=== PATIENT | male | born 1940 | race Caucasian/White ===

== ENCOUNTER 2024-12-02 06:16 | Inpatient (IN) | payer OTHER, SELFPAY ==
--- NOTE | 2024-11-26 11:07 | PTCARENOTE ---
Pt had a recent left neck skin cancer excision. he stated it is healing, but still has a scab. Sandra in Dr. Medina's office made aware.
[2024-11-27 10:03] VITALS: BMI 32.4
[2024-11-27 10:09] LABS: Hematocrit 39.3 % (39.0-52.0); Hemoglobin 13.5 g/dL (13.0-18.0); Mean Corp Hgb Conc. 34.4 g/dL (33.0-37.0); Mean Corpuscular Volume 98.7 fL (80.0-94.0); Nucleated Red Blood Cells % 0 % (-); Platelet Count 140 10^3/uL (130-400); Red Cell Dist. Width 12.2 % (11.5-14.5)
[2024-11-27 10:13] LABS: INR 0.95; PT 13.0 Sec (11.4-14.6)
[2024-11-27 10:14] LABS: APTT 32.8 Sec (23.4-35.0)
[2024-11-27 10:33] LABS: Blood Urea Nitrogen 27 mg/dl (9-20); Calcium 9.3 mg/dl (8.4-10.2); Carbon Dioxide 24 mmol/L (22-30); Chloride 106 mmol/L (98-107); Estimated Creatinine Clearance 62 ml/min; Glucose 151 mg/dl (70-99); Potassium 4.7 mmol/L (3.5-5.1); Sodium 138 mmol/L (135-145); eGFR > 60.00
[2024-12-02] VITALS (11 sets, daily range): BP systolic 122–181; BP diastolic 48–69; BMI 32.4; BMI 32.3
--- NOTE | 2024-12-02 06:57 | W.SUR.PREOP ---
Pre-Operative Surgical Note
-
I have examined this patient prior to the performance of the scheduled procedure.
The patient's condition is unchanged from the time of the current History and
Physical and the patient is able to undergo the scheduled procedure.
[2024-12-02 07:05] LABS: Glucose - Point of Care 144 mg/dl (70-99)
[2024-12-02] MEDS: PERIDEX 0.12% ORAL RINSE 15 ML PO (07:09)
[2024-12-02] MEDS: BACTROBAN NASAL 1 GRAM NASAL (07:09)
[2024-12-02] MEDS: NSS 500 IV (07:10)
--- NOTE | 2024-12-02 09:31 | W.SUR.POST ---
Surgical Immediate Post Op
Note
Pre Op Diagnosis: Carotid stenosis
Post Op Diagnosis: same
Procedure Performed: Left carotid endarterectomy with bovine pericardial patch angioplasty and EEG monitoring
Primary Surgeon: Adam
Secondary Surgeons: Evan STONE
Anesthesia: general
Estimated Blood Loss: 10cc
Fluids: see anesthesia flow sheet
Drains/Shunts: none
Specimens/Cultures: carotid plaque
Doppler/Duplex/Angio (Y/N): Y
Complications: none
Operative Findings: Woke from anesthesia moving all extremities
--- NOTE | 2024-12-02 09:36 | OR.RPT ---
Operative Report
Operative Report
PROCEDURE DATE: 12/02/2024
Preoperative diagnosis: Critical left carotid artery stenosis, asymptomatic.
Postoperative diagnosis: Same
Procedure: Left carotid endarterectomy with bovine pericardial patch angioplasty and intraoperative EEG/SSEP monitoring.
Surgeon: Adam
Sales Exec: RAFAELA Gordon, required for all aspects of procedure including assistance with traction/countertraction, following of suture line, assistance with closure.
Complications: None
Anesthesia: General
Indications for procedure:
Critical left carotid stenosis with concerning appearing plaque morphology as well (soft plaque with severe stenosis). At least moderate right sided carotid stenosis as well. Risk/benefits/alternatives of left carotid revascularization were fully
discussed. Patient understood all wished to proceed. Of note, in the time that I had scheduled him for surgery, subsequent to that he had seen a internal control consultant who done a biopsy in the left neck. It was slightly cephalad but near the site where I
had to make my incision. It had healed. But I discussed with him slightly increased risk from that procedure. He understood all wish to proceed.
Description of procedure:
Patient was identified brought to the operating room placed on the table in supine position. After the adequate administration of anesthesia and perioperative antibiotics he was prepped and draped in the standard surgical fashion. A standard
preoperative timeout was undertaken and everybody was in agreement the plan. A standard longitudinal incision was made in the left neck that was carried through the skin subcutaneous tissue. Using the electrocautery dissection was carried through
the platysma muscle layer and then alongside the anterior medial border of the sternocleidomastoid muscle. There was an external jugular branch that was crossing the field that was ligated between silk ties and divided. Then using a combination of
sharp dissection with the Metzenbaum scissors and electrocautery I dissected along the anterior medial border of the internal jugular vein. The common facial vein branch was ligated between silk ties and then divided. Note it was a low vein
branch, more so occurring anterior to the common carotid artery rather than the bifurcation as usual. Regardless it was ligated between silk ties and then divided. I then deepened my retraction. The common carotid artery was identified and
carefully dissected away from the surrounding structures take great care to avoid any injury to the structures. A vessel loop was passed around it which was double looped, but not yet tightened. Note the vagus nerve was clearly visualized in its
usual course posterior lateral to the common carotid artery, and was protected from harm's way. I then continued my dissection up the common carotid artery to the bulb staying only on the anterior surface of the carotid artery. Then I carried the
dissection up to the internal carotid artery and then to the distal internal carotid artery. I identified where it was soft and carefully circumferentially dissected the internal carotid artery with minimal mobilization and passed a vessel loop
around it. Note the hypoglossal nerve was not visualized and was felt to be further cephalad. The patient was given an appropriate dose of heparin 10,000 units. Next I dissected the anterior surface of the external carotid artery and superior
thyroid branches. These were then carefully circumferentially dissected with minimal mobilization and vessel loops passed around these which were double looped but not yet tightened. After 3 minutes of heparin circulation time and confirmation of
optimization of the blood pressure with my anesthesiology colleagues, I clamped the distal internal carotid artery where it was soft. There was no immediate EEG or SSEP changes. After 1 minute of test clamp time there was no changes noted.
Therefore at this point, the vessel loops on the external carotid artery and superior thyroid branches were tightened and the common carotid artery was clamped where it was soft proximally. An arteriotomy was made on the common carotid artery with
an 11 blade and extended using a Hampton scissor. I then extended the arteriotomy onto the mid to distal internal carotid artery. The plaque was a severely hemorrhagic friable plaque (as I had been concerned about based on CT scan appearance). A
Pavillion was then used to endarterectomized the plaque. An endarterectomy plane was somewhat challenging to create due to plaque morphology, but was created, and the plaque was then endarterectomized. Distally I feathered the plaque out to a
reasonable endpoint in the distal internal carotid artery. There was still little posterior plaque, but I cut the plaque flush. Next I endarterectomized the intima back to normal intima in the common carotid artery, and the intima was cut flush
there. I then grasped the plaque and everted plaque out of the origin of the external carotid artery. The plaque was then sent off for specimen. The origin of the external carotid artery was carefully visualized and any fine debris were removed
with fine forceps. Proximal and distal endpoints were then carefully inspected. At the distal endpoint the posterior lip of plaque was endarterectomized and pulled out. I had moved the clamp further cephalad to allow this. This piece now
feathered out to a nice clean endpoint. There was still slightly thickened intima posteriorly, but the endpoint looked good. Any fine debris was removed with fine forceps, and the intima was noted to be nicely adherent proximally and distally.
Next any fine debris were removed throughout the endarterectomy bed with fine forceps. I then flushed heparinized saline. I was very satisfied. Then, I used a bovine pericardial patch to sew a patch angioplasty with a running 6-0 Prolene suture.
Prior to completing and tying down my suture line, I backbled sequentially each branch and reclamped each branch prior to unclamping the next branch. I then irrigated with heparinized saline. Then I completed and tied down my suture line. We then
restored flow in the common carotid and external carotid arteries. Finally, we released flow in the internal carotid artery. There was excellent pulsatile flow in all 3 vessels. There was an excellent Doppler signal in the internal carotid artery
distal to the patch with a good normal low resistance Doppler signal. There was a good Doppler signal in the external carotid artery as well. Two 6-0 Prolene [id number] sutures were placed along two bleeding points along the suture line.
Protamine was given to reverse the heparin. Hemostasis was completely achieved. We then irrigated and confirmed full hemostasis. We then closed in layers with 2-0 Vicryl layer to reapproximate the sternocleidomastoid muscle, followed by 3-0
Vicryl platysma muscle running layer, followed by 4-0 Monocryl subcuticular stitch. Dermabond was applied. The patient tolerated procedure well. He awoke moving all extremities to command with tongue in the midline.
[2024-12-02 10:00] LABS: Glucose - Point of Care 241 mg/dl (70-99)
[2024-12-02 10:27] LABS: Hematocrit 35.2 % (39.0-52.0); Hemoglobin 12.0 g/dL (13.0-18.0); Mean Corp Hgb Conc. 34.1 g/dL (33.0-37.0); Mean Corpuscular Volume 98.3 fL (80.0-94.0); Platelet Count 154 10^3/uL (130-400); Red Cell Dist. Width 12.7 % (11.5-14.5)
[2024-12-02] MEDS: CARDENE 200 IV ×3 (10:28→19:47)
[2024-12-02 10:31] LABS: Blood Urea Nitrogen 22 mg/dl (9-20); Calcium 8.0 mg/dl (8.4-10.2); Carbon Dioxide 21 mmol/L (22-30); Chloride 109 mmol/L (98-107); Estimated Creatinine Clearance 74 ml/min; Glucose 240 mg/dl (70-99); Potassium 4.6 mmol/L (3.5-5.1); Sodium 134 mmol/L (135-145); eGFR > 60.00
[2024-12-02] MEDS: NSS 1000 IV ×2 (10:56→22:01)
[2024-12-02] MEDS: NOVOLOG vial 2 UNITS SC (11:07)
--- NOTE | 2024-12-02 11:27 | CON.INTV ---
Consultation
Consultation Request
Date/Time Consultation Requested: 12/02/2024923
Date/Time Consultation Performed: 12/02/2024943
Requesting Provider: CHASE Veloz
Performing Provider: Dr. Lowry
Reason for Consultation: Left-CEA
Medical History
-
Chief Complaint: Elective left carotid endarterectomy
History of Present Illness:
84-year-old male former tobacco smoker with a past medical history of hypertension, DM type II, bradycardia, s/p PPM, and bilateral carotid artery stenosis who presents for elective left carotid endarterectomy. Patient known to the vascular surgery
service with last visit on 11/03/[address] Medina. Imaging performed at [facility], with carotid duplex in August 2024 showing bilateral 70-99% carotid artery stenosis with a right sided peak systolic velocity of 300 cm/s and a left-sided peak
systolic velocity of 352 cm/s. She did have a CTA head/neck on 09/29/2024 showing severe left-sided stenosis with mixed plaque including significant soft plaque elements that extend over slightly greater distance. This is extremely concerning as
this could lead to a CVA. Vascular intervention discussed and the patient agreed to a procedure; today, patient underwent a left carotid endarterectomy with bovine pericardial patch angioplasty with intraoperative EEG/SSEP monitoring. Patient went
to the ICU postoperatively, and [employer] services consulted for additional management/recommendations.
Patient arrived to ICU from PACU at around 11:20 AM today. Currently on 2 L/min nasal cannula, breathing comfortably. Heart rate 64, BP via NIBP: 119/51, and BP via right radial A-line: 170/55. His , Gloria Mack, is at bedside and all
questions answered.
PMHx: Hypertension, DM type II, bradycardia, history of PPM, paroxysmal A-fib, hypertriglyceridemia, former tobacco smoker (quit approximately in 1998)
PSHx: CABG x 4
Past Medical History
Past Medical History: Other (Above as per HPI)
Past Surgical History: Other (Above as per HPI)
Social History
Tobacco: Former Smoker (Former smoker, smoked socially while fishing, smoking 4-5 cigarettes few times a month x 20 years; quit in 1998)
Alcohol: None
Drug: None
Personal:
Living: With Family
Family History
Family History: Reviewed & Not Pertinent
Allergies / Home Medications
Allergies
Allergy/AdvReac Type Severity Reaction Status Date / Time
No Known Allergies Allergy Unverified 12/02/24 06:42
Home Medications
�Medication �Instructions �Recorded �Confirmed �Last Taken �Type
Lactobacillus acidophilus 250 1,000 mmu cells PO DAILY 11/26/24 11/26/24 Unknown History
million cell capsule (Probiotic
Acidophilus)
amiodarone 200 mg tablet 200 mg PO BID 11/26/24 12/02/24 12/02/24 05:00 History
atorvastatin 20 mg tablet 20 mg PO QPM 11/26/24 12/02/24 12/01/24 17:00 History
baclofen 10 mg tablet 10 mg PO QPM 11/26/24 11/26/24 Unknown History
cholecalciferol (vitamin D3) 25 25 mcg PO DAILY 11/26/24 11/26/24 Unknown History
mcg (1,000 unit) capsule (Vitamin
D3)
coQ10 (ubiquinol) 100 mg capsule 100 mg PO DAILY 11/26/24 11/26/24 Unknown History
glucosamine sulf dipot 1 cap PO DAILY 11/26/24 11/26/24 Unknown History
chlr,msm,chond 550 mg-C 30 mg-deirdre
1 mg capsule (Glucosamine
Chondroitin)
lisinopril 20 mg tablet 20 mg PO DAILY 11/26/24 12/02/24 12/01/24 05:00 History
metformin 500 mg tablet,extended 500 mg PO QPM 11/26/24 12/02/24 12/01/24 17:00 History
release 24 hr
multivitamin 1 tab PO DAILY 11/26/24 11/26/24 Unknown History
omega 1-bbe-orl-fish oil 1,000 mg 2,000 cap PO BID 11/26/24 11/26/24 Unknown History
(120 mg-180 mg) capsule (Fish Oil)
potassium 99 mg tablet 99 mg PO DAILY 11/26/24 11/26/24 Unknown History
zinc acetate 50 mg (zinc) capsule 50 mg PO DAILY 11/26/24 11/26/24 Unknown History
aspirin 81 mg tablet 81 mg PO DAILY 12/02/24 12/02/24 12/02/24 05:00 History
Review of Systems
-
History Source: Patient
All other systems: Negative unless noted
Vitals / Labs / Diagnostic Testing
Vital Signs
Temp Pulse Resp BP Pulse Ox
98.2 F 60 17 129/48 92
12/02/24 12:09 12/02/24 12:15 12/02/24 12:15 12/02/24 11:45 12/02/24 12:15
Lab Data
12/02/24 10:06
12/02/24 10:06
Diagnostic Testing:
Physical Exam
-
HEENT: Anicteric and Other (Vertical incision seen along left anterior neck with no active bleeding seen)
Cardiovascular: S1/S2 and Peripheral Edema (negative)
Respiratory: Clear, Wheeze (negative), Rales (negative) and Rhonchi (negative)
GI: Soft, Non Distended, Non Tender and Normal Bowel Sounds
Neurology: Awake, Alert, Oriented and Tremors (negative)
Skin: Warm and Dry
General: Respiratory Distress (negative), Comfortable, Fever (negative) and Chills (negative)
Assessment
-
Assessment: 84-year-old male former tobacco smoker with a past medical history of hypertension, DM type II, bradycardia, s/p PPM, and bilateral carotid artery stenosis who presents for elective left carotid endarterectomy. Patient known to the
vascular surgery service with last visit on 11/03/[address] Medina. Imaging performed at [facility], with carotid duplex in August 2024 showing bilateral 70-99% carotid artery stenosis with a right sided peak systolic velocity of 300 cm/s and a
left-sided peak systolic velocity of 352 cm/s. She did have a CTA head/neck on 09/29/2024 showing severe left-sided stenosis with mixed plaque including significant soft plaque elements that extend over slightly greater distance. This is extremely
concerning as this could lead to a CVA. Vascular intervention discussed and the patient agreed to a procedure. On 12/02/2024, the pt. underwent a left carotid endarterectomy with bovine pericardial patch angioplasty with intraoperative EEG/SSEP
monitoring. Patient TRX to ICU postoperatively, and [employer] Mechanical Engineer services consulted for additional management/recommendations.
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
Impression:
#Critical left carotid artery stenosis s/p left carotid endarterectomy with bovine pericardial patch angioplasty and intraoperative EEG/SSEP monitoring (POD #0)
#Leukocytosis
#Anemia
#DM type II complicated by hyperglycemia
#Paroxysmal A-fib on amiodarone
#Former tobacco smoker, smoking socially with 4-5 cigarettes few times a month for ~20 years - quit in 1998
Plan:
Postoperative surgical intensive care unit monitoring
Supplemental oxygen as needed to maintain SpO2 >90-94%
prn nebulized bronchodilators - not currently bronchospastic
Incentive spirometry encouraged 10x per hour for at least 4 hrs a day
Aspiration precautions
Pain control
Neuro and vascular checks per protocol
Right radial A-line in place; he is becoming more hypertensive with SBP currently in the 170s; use Cardene if needed to maintain MAP between 70�100mmHg, or otherwise if noted by vascular
Maintain MAP>65
Replete electrolytes with K>4, Mg>2
Maintain euglycemia with goal BG 140-180; check A1c
Vascular surgery following-correspondence and operative notes reviewed
Transfuse blood products as needed to keep Hb>7g/dL, and plt>50k (given post-operative status)
DVT prophylaxis
Early nutrition
Early mobilization
Critical care statement: A total of 38 minutes of critical care time was provided for this patient today. This includes management of unstable vital signs, evaluation of the patient at bedside, reviewing the patient's pertinent medical records
including radiographs, microbiology, laboratory evaluations, and discussion with primary team, consultants, pharmacy, nutrition, physical therapy, case management, charge nurse, critical care nursing, and respiratory therapy.
[2024-12-02 13:09] LABS: Glucose - Point of Care 168 mg/dl (70-99)
--- NOTE | 2024-12-02 13:13 | PTCARENOTE ---
Rec'd patient from PACU around 1120. Patient alert and oriented. Pupils equal and reactive; +2mm. Smile symmetrical; tongue midline. MAEx4. Left neck incision closed with surgical adhesive. Apaced, rate in the 60's. Cardene infusing for SBP 100-165.
Right radial nick leveled and zeroed. +1 b/l ankle edema. Palpable pulses. Pulse ox 95-97% on 2L nc. Lung sounds diminished. +BS. Tolerating sipping on clears. Voiding via urinal.
[2024-12-02] MEDS: NOVOLOG FLEXPEN-LOW RESISTANCE 1 UNITS SC (13:22)
[2024-12-02] MEDS: NOVOLOG FLEXPEN-LOW RESISTANCE 2 UNITS SC (14:58)
[2024-12-02 15:00] LABS: Glucose - Point of Care 206 mg/dl (70-99)
[2024-12-02] MEDS: HEPARIN 5000 UNITS SC (15:49)
[2024-12-02] MEDS: LIPITOR 20 MG PO (17:41)
[2024-12-02] MEDS: PACERONE 200 MG PO (19:15)
[2024-12-02 21:38] LABS: Glucose - Point of Care 202 mg/dl (70-99)
--- NOTE | 2024-12-02 22:08 | PTCARENOTE ---
Assumed care at 1900. Cardene and IVF running. Right radial A line leveled and zeroed. q1h neuro checks s/p CEA today. Incision with surgical adhesive intact- no edema/firmness. See neurocheck flowsheet on worklist for details.
[2024-12-03] VITALS: BP 120/49
[2024-12-03] MEDS: CARDENE 200 IV ×2 (00:05→05:10)
[2024-12-03] MEDS: HEPARIN 5000 UNITS SC ×2 (00:09→08:09)
--- NOTE | 2024-12-03 02:36 | PTCARENOTE ---
No change from previous assessment. Weaning cardene to maintain SBP below 165. No complaints of pain. See worklist for neuro check details.
[2024-12-03 04:32] LABS: Hematocrit 34.7 % (39.0-52.0); Hemoglobin 11.5 g/dL (13.0-18.0); Mean Corp Hgb Conc. 33.1 g/dL (33.0-37.0); Mean Corpuscular Volume 98.9 fL (80.0-94.0); Platelet Count 147 10^3/uL (130-400); Red Cell Dist. Width 12.4 % (11.5-14.5)
[2024-12-03 04:55] LABS: Blood Urea Nitrogen 30 mg/dl (9-20); Calcium 8.1 mg/dl (8.4-10.2); Carbon Dioxide 19 mmol/L (22-30); Chloride 110 mmol/L (98-107); Estimated Creatinine Clearance 68 ml/min; Glucose 165 mg/dl (70-99); INR 1.09; Magnesium 2.1 mg/dl (1.6-2.3); PT 14.4 Sec (11.4-14.6); Potassium 4.8 mmol/L (3.5-5.1); Sodium 134 mmol/L (135-145); eGFR > 60.00
[2024-12-03 04:56] LABS: APTT 28.8 Sec (23.4-35.0)
[2024-12-03 06:00] VITALS: BMI 32.8
--- NOTE | 2024-12-03 06:41 | PTCARENOTE ---
No changes from previous assessment. Patient anxious to be discharged so he could get some sleep. Care clustered overnight as best at possible. Cardene gtt weaned to 2.5 mg/hr.
[2024-12-03 08:02] LABS: Glucose - Point of Care 170 mg/dl (70-99)
--- NOTE | 2024-12-03 08:02 | W.PN.VS ---
Addendum entered and electronically signed by James Medina MD 12/03/24 09:19:
Seen and examined with SALES OFFICE COORDINATOR. Agree with findings as noted below. Left neck incision is clean dry and intact. No hematoma. Neurologically no focal deficits. Tongue midline. Plan/as discussed and noted below.
Original Note:
Today's Communication / Plan
-
Patient seen and examined at bedside with Dr. James Medina M.D., below plan reviewed with attending.
Assessment/Plan
-
Assessment: 84-year-old male POD #1 left carotid endarterectomy
Plan:
Will get home antihypertensive p.o. medication with goal to wean off Cardene infusion
DC arterial line once Cardene infusion weaned off
DC IV fluids
Out of bed to chair with progression ambulation as tolerated
Continue statin and aspirin 81 mg p.o. daily for antiplatelet medication
Possible discharge later this afternoon pending patient progression
Subjective Data
-
Date of Service: December 03, 2024
Patient seen and examined at bedside, offers no complaints. Denies nausea, vomiting, fever, chills, and headache.
Objective Data
-
Vital Signs
Temp Pulse Resp BP Pulse Ox
97.9 F 60 22 120/49 95
12/03/24 08:01 12/03/24 06:00 12/03/24 06:00 12/03/24 00:00 12/03/24 06:00
Intake and Output
12/02/24 12/03/24 12/04/24
06:59 06:59 06:59
Intake Total 3156.2 / 3156.2
Output Total 800 / 800
Balance 2356.2 / 2356.2
Intake:
Oral fluids 720 / 720
IV fluids (Total) 2436.2 / 2436.2
Cardene 766.2 / 766.2
Normosol 150 / 150
Nss 1,000 ml @ 80 mls/hr IV . 1520 / 1520
[id number] [facility] Rx#:[id number]
Output:
Urine, Voided 800 / 800
Lab Results
12/03/24 04:09
12/03/24 04:09
Calcium 8.1 mg/dl (8.4-10.2) L 12/03/24 04:09
Phosphorus 4.3 mg/dl (2.5-4.5) 12/03/24 04:09
Magnesium 2.1 mg/dl (1.6-2.3) 12/03/24 04:09
Physical Exam
-
No apparent distress, resting in bed comfortably
Face symmetrical, left neck surgical site clean, dry, and intact, no evidence of hematoma, tongue midline
No tachycardia
No dyspnea on room air
Moves bilateral upper extremities and lower extremities to command and spontaneously with equal strength
[2024-12-03] MEDS: THERAGRAN 1 TABLET PO (08:08)
[2024-12-03] MEDS: ASPIR LOW (ENTERIC COATED) 81 MG PO (08:08)
[2024-12-03] MEDS: ZESTRIL 20 MG PO (08:08)
[2024-12-03] MEDS: PROTONIX 40 MG PO (08:08)
[2024-12-03] MEDS: NOVOLOG FLEXPEN-LOW RESISTANCE 1 UNITS SC (08:08)
[2024-12-03] MEDS: PACERONE 200 MG PO (08:08)
--- NOTE | 2024-12-03 08:20 | W.PN.INTV ---
Today's Communication / Plan
Recommendations
Up OOB as tolerated
Postoperative management as per vascular surgery
Pain control
Resume metformin + other home medications unless contraindicated per vascular surgery
He is currently recovering from a cold � recommend supportive care with OTC medications such as Tylenol, Mucinex, cough drops, vitamin C, multivitamin, and staying hydrated with water
- I told him that if his current symptoms of his recent URI worsen, such as worsening cough, any development of shortness of breath or wheezing, that he can certainly see us in the pulmonary office. Him and his are in agreement with this plan
Patient is being planned for discharge home today. No additional recommendations at this time. Post Office Markup Clerk/Pulmonary service will now sign off. Please reconsult if there are any additional questions/concerns, or if patient's respiratory status
deteriorates.
Assessment
-
Assessment: 84-year-old male former tobacco smoker with a past medical history of hypertension, DM type II, bradycardia, s/p PPM, and bilateral carotid artery stenosis who presents for elective left carotid endarterectomy. Patient known to the
vascular surgery service with last visit on 11/03/[address] Medina. Imaging performed at [facility], with carotid duplex in August 2024 showing bilateral 70-99% carotid artery stenosis with a right sided peak systolic velocity of 300 cm/s and a
left-sided peak systolic velocity of 352 cm/s. She did have a CTA head/neck on 09/29/2024 showing severe left-sided stenosis with mixed plaque including significant soft plaque elements that extend over slightly greater distance. This is extremely
concerning as this could lead to a CVA. Vascular intervention discussed and the patient agreed to a procedure. On 12/02/2024, the pt. underwent a left carotid endarterectomy with bovine pericardial patch angioplasty with intraoperative EEG/SSEP
monitoring. Patient TRX to ICU postoperatively, and Post Office Markup Clerk services consulted for additional management/recommendations.
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
Impression:
#Critical left carotid artery stenosis s/p left carotid endarterectomy with bovine pericardial patch angioplasty and intraoperative EEG/SSEP monitoring (POD #1)
#Leukocytosis
#Recent URI (patient admits that he is recovering from a recent cold)
#Anemia
#DM type II complicated by hyperglycemia
#Paroxysmal A-fib on amiodarone
#Former tobacco smoker, smoking socially with 4-5 cigarettes few times a month for ~20 years - quit in 1998
Plan:
Postoperative surgical intensive care unit monitoring
Supplemental oxygen as needed to maintain SpO2 >90-94% - currently on room air breathing comfortably and saturating 96%
prn nebulized bronchodilators - not currently bronchospastic
Incentive spirometry encouraged 10x per hour for at least 4 hrs a day
Aspiration precautions
Pain control
Neuro and vascular checks per protocol
Goal MAP 70-100; now that he is on POD#1, can keep BP<130/80, if ok per vascular
A-line is now out
Maintain MAP>65
Replete electrolytes with K>4, Mg>2
Maintain euglycemia with goal BG 140-180; A1c: 6.5 from 12/03/2024
Vascular surgery following-correspondence and operative notes reviewed
Transfuse blood products as needed to keep Hb>7g/dL, and plt>50k (given post-operative status)
DVT prophylaxis
Early nutrition
Early mobilization
Patient is being planned for discharge home today. I told him that if his current symptoms of his recent URI worsen, such as worsening cough, any development of shortness of breath or wheezing, that he can certainly see us in the pulmonary office.
Him and his are in agreement with this plan and all questions were answered.
No additional recommendations at this time. Post Office Markup Clerk/Pulmonary service will now sign off. Thank you for allowing us to be involved in the care of this patient. Please reconsult if there are any additional questions/concerns, or if patient's
respiratory status deteriorates.
Total time spent today was 58 minutes for this encounter. Time includes reviewing laboratory test/imaging results, reviewing pertinent medical records, obtaining and reviewing medical history, performing an appropriate exam, ordering medications,
tests and procedures. Time also includes documentation of this encounter, coordinating patient care and communicating with other healthcare professionals. Total time does not include separately billed tests performed on this date of service.
Subjective Dataa
Subjective Data
Date of Service:
Date of Service: December 03, 2024
Chief Complaint: Post Office Markup Clerk Follow Up
Subjective:
Patient was seen and evaluated this morning. Plans to be discharged home later today. Heart rate 82, and BP 120/42, and he is breathing comfortably on room air. Patient's is at bedside.
Review of Systems
General: Other (Negative unless mentioned above)
Objective Data
Data Reviewed
Vital Signs / I&O / Oxygen:
Vital Signs
Temp Pulse Resp BP Pulse Ox
97.9 F 81 16 120/42 92
12/03/24 08:01 12/03/24 11:06 12/03/24 11:00 12/03/24 11:06 12/03/24 08:26
Intake and Output
12/02/24 12/03/24 12/04/24
06:59 06:59 06:59
Intake Total 3156.2 / 3248.7 185.0 / 185.0
Output Total 800 / 800 200 / 200
Balance 2356.2 / 2448.7 -15.0 / -15.0
SaO2 92
Nasal Cannula flow liters per 2
minute
Physical Exam
General: Respiratory Distress (negative), Comfortable, Chills (negative) and Sweats (negative)
HEENT: Normocephalic, Anicteric and Other (Thick neck)
Cardiovascular: S1-S2 and Peripheral Edema (negative)
Respiratory: Wheeze (negative), Crackles (Right base), Rhonchi (negative), Non-Labored Respirations and Stridor (negative)
GI: Soft, Distended (Abdominal obesity), Non Tender and Normal Bowel Sounds
Neurology: AO x 3 and Tremors (negative)
Skin: Warm, Dry, Cyanosis (negative) and Jaundice (negative)
Labs/Micro/Reports
Lab Data
12/03/24 04:09
12/03/24 04:09
Laboratory Results
12/03/24
04:09
PT 14.4
INR 1.09
APTT 28.8
[2024-12-03 08:25] VITALS: BP 119/46
[2024-12-03 08:48] LABS: Glycohemoglobin (HgbA1c) 6.5 % (4.0-5.9)
[2024-12-03 08:58] VITALS: BP 126/55
--- NOTE | 2024-12-03 09:30 | PTCARENOTE ---
Rec'd care of patient at 0700. AAOx3. PERRLA. Smile symmetrical, tongue midline. MAEx4. Left neck incision closed with surgical adhesive. Apaced on tele. Cardene off around 0830. Right radial nick removed. Trace ankle edema. Palpable pulses. Lung
sounds diminished. Weaned to RA. +BS. Appetite good. Voiding via urinal. IVFs capped. OOB to chair at 0900.
[2024-12-03 09:58] VITALS: BP 128/52
[2024-12-03 11:06] VITALS: BP 120/42
--- NOTE | 2024-12-03 11:33 | PTCARENOTE ---
Patient ambulatory in flores without difficulty. VSS. Neuro assessment unchanged. Discharge orders placed.
--- NOTE | 2024-12-03 11:46 | W.DS.TRANS ---
DC Summary - Credit Cashier
-
Discharge Instructions:
Sleep Apnea Risk Intermediate
Discharge Diagnosis/Procedures Left carotid endarterectomy
Diet As tolerated
Activity No strenuous activity
Driving Restrictions Not until seen by your Dr
Bathing Restrictions OK to Shower
Instructions:
Stand-Alone Forms: Vascular Surg Discharge Instr
Changes to Home Medications: No
Discharge Medications:
DC Medications w/original date entered in [employer]
Lactobacillus acidophilus 250 million cell capsule (Probiotic Acidophilus) 1,000 mmu cells PO DAILY Gastrointestinal Issue 11/26/24
amiodarone 200 mg tablet 200 mg PO BID Heart Disease/Condition 11/26/24
atorvastatin 20 mg tablet 20 mg PO QPM High Cholesterol 11/26/24
baclofen 10 mg tablet 10 mg PO QPM Pain 11/26/24
cholecalciferol (vitamin D3) 25 mcg (1,000 unit) capsule (Vitamin D3) 25 mcg PO DAILY Supplement 11/26/24
coQ10 (ubiquinol) 100 mg capsule 100 mg PO DAILY Supplement 11/26/24
glucosamine sulf dipot chlr,msm,chond 550 mg-C 30 mg-deirdre 1 mg capsule (Glucosamine Chondroitin) 1 cap PO DAILY Supplement 11/26/24
lisinopril 20 mg tablet 20 mg PO DAILY Blood Pressure 11/26/24
metformin 500 mg tablet,extended release 24 hr 500 mg PO QPM Diabetes 11/26/24
multivitamin 1 tab PO DAILY Supplement 11/26/24
omega 4-xkk-iss-fish oil 1,000 mg (120 mg-180 mg) capsule (Fish Oil) 2,000 cap PO BID Supplement 11/26/24
potassium 99 mg tablet 99 mg PO DAILY Electrolyte Repletion 11/26/24
zinc acetate 50 mg (zinc) capsule 50 mg PO DAILY Supplement 11/26/24
aspirin 81 mg tablet 81 mg PO DAILY Blood Clot Prevention/Tx 12/02/24
Home Medication Changes
Pending Results: No
--- NOTE | 2024-12-03 12:01 | CM ---
Initial assessment completed with patient who lives with his in a 2 story bilevel home with 5 steps to main floor and 5 steps to 2nd level, B/B on 2nd, 1/2 bath on main level. 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 Does
not use any DME but does have crutches in the home. No in-home services. Does have HC-POA. No VA benefits. No psychiatric hospitalizations. PCP is Dr. Grupo Rausch. Pharmacy is [facility] in [facility] in [place]. Discharge POC: Anticipate home with no
needs.
--- NOTE | 2024-12-03 12:12 | CM ---
Patient has been medically cleared for discharge to home with no additional skilled services. will transport home.
[2024-12-03] MEDS: PREVNAR 20 0.5 ML IM (12:16)
[2024-12-03 12:47] VITALS: BP 134/65
--- NOTE | 2024-12-03 13:02 | PTCARENOTE ---
Discharge paperwork completed with patient and patient's . VSS. Escorted via wheelchair to car with belongings.
--- NOTE | 2024-12-03 13:38 | W.DCSUMMARY ---
Discharge Summary
Discharge Data
Date of Admission: 12/02/24
Date of Discharge: 12/03/24
-
Pending Results: No
Hospital Course
Attending: Adam
Consultants: Pulmonary medicine
Allergies: NKDA
Procedure with date: 12/02/2024: Left carotid endarterectomy with bovine pericardial patch angioplasty and EEG monitoring
History of present illness: The patient is an 84-year-old male with multiple medical conditions including: carotid stenosis, diabetes, hypertension, bradycardia, pacemaker, A-fib,former smoker, CABG x 4. Patient presented on 12/02/2024 for scheduled
procedure with Dr. Medina. Patient presented at baseline health with no reports of recent illness or trauma.
Hospital Course: Briefly, the patient underwent scheduled CEA without complications, and recovered in PACU. Following recovery phase one and two patient was transferred to intensive care unit per protocol for continued hemodynamic monitoring.
Clam Bed Laborer consulted to aid in medical management from a critical care perspective. POD #1 (12/03/2024) Patient neurologically intact, face symmetrical, and tolerating PO diet. Surgical neck site clean, dry, and intact with suture line well
approximated and soft. No evidence of hematoma. Arterial line and IV fluids discontinued. Patient able to ambulate without difficulty or incident. Patient stable for discharge to home.
Prescriptions and follow up appointment are included in the DC summary roll carrier note. All instructions were given to the patient in both written and verbal form and the patient expressed understanding
Discharge Plan
-
Patient Disposition: Home (Routine Discharge)
Discharge Diagnosis/Procedures: Left carotid endarterectomy
Condition: Good
Diet: As tolerated
Activity: No strenuous activity
Driving Restrictions: Not until seen by your Dr
Bathing Restrictions: OK to Shower
Stand Alone Forms: Vascular Surg Discharge Instr
Referrals:
Grupo Rausch MD [Family Provider, Family Practice]
Sherie Tate CRNP [Specified Professional Personl, Vascular Surgery] - 12/16/24 11:30 am
Referral Note: Vascular surgery office follow up
Prescriptions:
Continued
multivitamin Tablet
1 tab PO DAILY
atorvastatin 20 mg Tablet
20 mg PO QPM
zinc acetate 50 mg (zinc) Capsule
50 mg PO DAILY
amiodarone 200 mg Tablet
200 mg PO BID
lisinopril 20 mg Tablet
20 mg PO DAILY
potassium 99 mg Tablet
99 mg PO DAILY
baclofen 10 mg Tablet
10 mg PO QPM
metformin 500 mg Tablet Extended Release 24 Hr
500 mg PO QPM
cholecalciferol (vitamin D3) [Vitamin D3] 25 mcg (1,000 unit) Capsule
25 mcg PO DAILY
omega 3-bbk-jiv-fish oil [Fish Oil] 1,000 (120-180) mg Capsule
2,000 cap PO BID
coQ10 (ubiquinol) 100 mg Capsule
100 mg PO DAILY
Probiotic Acidophilus 250 million cell Capsule
1,000 mmu cells PO DAILY
Glucosamine Chondroitin 550-30-1 mg Capsule
1 cap PO DAILY
aspirin 81 mg Tablet
81 mg PO DAILY
Discharge Orders:
Discharge Patient (As Directed); Ordered 12/03/24
Ordered By: Day Palacios
Discharge Date and Time
Discharge Date/Time: 12/03/24 13:04
Print Language: JAPANESE
== END 2024-12-03 13:04 | disposition home or self-care (01) | DRG 39 ==
LOC: ICU 06:16
PROVIDERS: Nurse Practitioner Acute Care; ADMITTING PHYSICIAN Surgery Vascular Surgery; CONSULT PHYSICIAN Internal Medicine Critical Care Medicine; FAMILY PHYSICIAN Family Medicine
PROC: 03CJ0ZZ Extirpation of Matter from Left Common Carotid Artery, Open Approach (ICD-10-PCS; 2024-12-02)
PROC: 03UJ0KZ Supplement Left Common Carotid Artery with Nonautologous Tissue Substitute, Open Approach (ICD-10-PCS; 2024-12-02)
DX: I65.22 Occlusion and stenosis of left carotid artery (principal); I65.23 Occlusion and stenosis of bilateral carotid arteries; D64.9 Anemia, unspecified; E11.65 Type 2 diabetes mellitus with hyperglycemia; E78.1 Pure hyperglyceridemia; I10 Essential (primary) hypertension; I48.0 Paroxysmal atrial fibrillation; Z79.82 Long term (current) use of aspirin; Z79.899 Other long term (current) drug therapy; Z87.891 Personal history of nicotine dependence; Z95.0 Presence of cardiac pacemaker
CPT/HCPCS: 35301; 36415; 71045; 71046; 80048; 82962; 83036; 83735; 84100; 85025; 85027; 85610; 85730; 86850; 86900; 86901; 88304; 88311; 90677; 93005; 95938; 95941; 95955; G0009

== ENCOUNTER → 2025-01-25 13:05 | Outpatient (REF) | payer OTHER, SELFPAY | LOC: RAD 13:05 | PROVIDERS: ATTENDING PHYSICIAN Registered Nurse; FAMILY PHYSICIAN Family Medicine; REFERRING PHYSICIAN Internal Medicine Cardiovascular Disease | DX: I65.23 Occlusion and stenosis of bilateral carotid arteries (principal) | CPT/HCPCS: 93880 ==